=== PATIENT | female | born 1965 | race Two or more races ===

== ENCOUNTER 2025-09-05 10:40 | Emergency (ER) | payer OTHER ==
[~2025-09-05] VITALS: Ht 149.9 cm; Wt 59.9 kg
[2025-09-05] MEDS ORDERED: CEFTRIAXONE SODIUM 1,000 MG VIAL IM STA (11:47)
[2025-09-05] MEDS ORDERED: KETOROLAC TROMETHAMINE 30 MG VIAL IM STA (11:48)
[2025-09-05] MEDS ORDERED: KETOROLAC TROMETHAMINE 30 MG VIAL ONE (11:59)
[2025-09-05] MEDS ORDERED: LIDOCAINE HCL 1% 10ML VIAL ONE (12:00)
[2025-09-05] MEDS ORDERED: CEFTRIAXONE SODIUM 1,000 MG VIAL ONE (12:00)
== END 2025-09-05 12:31 | disposition home or self-care (01) ==
LOC: ER 10:40
DX: H66.92 Otitis media, unspecified, left ear (principal)

== ENCOUNTER 2025-09-09 09:49 | Emergency (ER) | payer OTHER ==
[~2025-09-09] VITALS: Ht 162.6 cm; Wt 65.8 kg
== END 2025-09-09 10:48 | disposition home or self-care (01) ==
LOC: ER 09:49
DX: H66.92 Otitis media, unspecified, left ear (principal)

== ENCOUNTER 2025-09-14 08:28 | Emergency (ER) | payer OTHER ==
[~2025-09-14] VITALS: Ht 157.5 cm; Wt 59.0 kg
[2025-09-14 08:34] VITALS: BP 126/73; O2SAT 98
== END 2025-09-14 10:11 | disposition home or self-care (01) ==
LOC: ER 08:28
DX: H66.92 Otitis media, unspecified, left ear (principal)